=== PATIENT | male | born 1970 | race African-American/Black ===

== ENCOUNTER 2017-01-05 22:09 | Emergency (ER) | payer SELFPAY ==
[~2017-01-05] VITALS: Ht 170.2 cm; Wt 92.5 kg
[2017-01-05 22:33] VITALS: Ht 170.2 cm; Wt 92.5 kg
[2017-01-06] MEDS ORDERED: KETOROLAC 30 MG INJ IM STA (00:36)
--- NOTE | 2017-01-06 00:36 | ERD ---
ER Documentation Chief Complaint Date/Time DATE: 01/06/17 TIME: 00:29 Chief Complaint pt reports sciatic exacerbation HPI Chronic back pain current pain x 1 day , pt reports work injury May 2016. pt reports hitting his head and fracturing his clavicle reports memory loss and he is having a difficult time reporting hx . reports taking IBU and prednsion in he past w/o relife of symptoms . reports a pain manimen MD but has not seen MD. has massage hearpy Friday and Sat symptoms worse today ROS All systems reviewed and are negative except as per history of present illness. Allergies Allergies: Coded Allergies: No Known Allergy (Unverified , 01/05/17) PMhx/Soc Hx Miscellaneous Medical Probl: Yes (sciatic pain) Hx Alcohol Use: No Hx Substance Use: No Hx Tobacco Use: No Smoking Status: Never smoker Physical Exam Vitals Vital Signs Date Time Temp Pulse Resp B/P Pulse Ox O2 Delivery O2 Flow Rate FiO2 01/05/17 22:33 98.2 72 18 117/80 98 Physical Exam Const: Nourished well appearing obvious discomfort no acute distress Head: Atraumatic Eyes: Normal Conjunctiva, PERRLA, EOMI ENT: Neck: Resp: Cardio: Abd: Skin: Back Exam: Skin: No bruising or rash Compartments: Soft Motor: Exam. Patient in wheelchair having difficulty moving Sensation: Intact to light touch throughout Ext: No cyanosis, or edema Neur: Awake and alert Psych: Normal Mood and Affect Results 24 hrs Current Medications Medications (Trade) Dose Ordered Sig/Bisi Route PRN Reason Start Time Stop Time Status Last Admin Dose Admin Ketorolac Tromethamine (Toradol) 30 mg ONCE STAT IM 01/06/17 00:36 01/06/17 00:38 DC 01/06/17 00:48 Diazepam (Valium) 5 mg ONCE ONCE PO 01/06/17 01:00 01/06/17 01:01 DC 01/06/17 00:48 Procedures/MDM PROCEDURE: XR Lumbar Spine. CLINICAL INDICATION: Back pain. TECHNIQUE: AP, lateral and cone-down lateral view of the lumbar spine were obtained. COMPARISON: No prior studies are available for comparison. FINDINGS: There is normal vertebral mineralization and alignment. No fracture or subluxation is seen. The disc spaces are normal in appearance. Posterior facet degenerative changes are likely present at the L4-5 and L5-S1 levels, greater at the L5-S1 level. posterior elements are unremarkable. Small anterior endplate osteophytes at the L4 and L5 levels compatible with mild degenerative changes. The soft tissues appear normal. Left greater than right mild to moderate degenerative changes in the sacroiliac joints. IMPRESSION: 1. No acute fracture. 2. Left greater than right mild to moderate degenerative changes in the sacroiliac joints. Electronically viewed and signed by Physician Marco on 01/06/2017 02:17 This 46-year-old male patient presents to emergency department for evaluation of back pain. Patient reports chronic back pain, states he was in a work- related injury May 2016 hit his head. Patient reports memory loss. Patient reports a fractured collarbone and problems with his cervical spine, thoracic spine, lumbar spine. Patient reports he is currently being treated with ibuprofen, has had a course of steroids, reports getting massage therapy, states he had massage Friday and Friday and now pain is 9/10 on pain scale. Patient reports pain radiating down his left trent. Patient reports he has pain management but does not remember if he is gone. Patient is a poor historian is not eating a consistent medical history. She has not been seen at this hospital in the past. Has no past record to evaluate. Today's emergency room course includes 15 mg of Toradol, 5 mg of Valium, a lumbar x-ray with radiologist interpretation: There is normal vertebral mineralization and alignment. No fracture or subluxation is seen. The disc spaces are normal in appearance. Posterior facet degenerative changes are likely present at the L4- 5 and L5-S1 levels greater at the L5-S1 level. Mild degenerative changes. There is soft tissue appears normal. The left greater than right mild to moderate degenerative changes of the sacroiliac joints. Plan to discharge patient home with Naprosyn 500 mg 1 tab p.o. twice daily 10 days, Valium 5 mg 1 tab p.o. 3 times daily for myopathy. [place] 5/325 count of 7. Patient was told he would not get any further medications from the emergency room that he must follow-up with pain management. Patient is stable with no new complaints during ER course, clinically there is no current evidence to suggest cauda equina syndrome spinal abscess, spinal mass or any other emergent condition appearing to require further evaluation or hospitalization. I feel the patient is stable for discharge at this time. I have discussed results, examination findings, the treatment plan with the patient and family present prior to discharge. Indications for emergent reevaluation, side effects of medication were also discussed. All questions were answered. Patient verbalizes understanding and agrees with plan of care. Departure Diagnosis: Primary Impression: Chronic back pain Back pain location: low back pain Back pain laterality: left Sciatica presence: with sciatica Sciatica laterality: sciatica of left side Qualified Code: M54.42 - Chronic left-sided low back pain with left-sided sciatica Additional Impression: Degenerative disc disease at L5-S1 level Condition: Good Patient Instructions: Back Pain W/ Sciatica Referrals: [facility] Additional Instructions: Thank you for for coming to the [facility] for your care today. Please ask your nurse or provider if you have questions about your care today and do not leave until all your questions have been answered. Please use any medications given as directed and follow-up with your doctor (or the doctor you were referred to) in the next 2-3 days. If you do not have a primary care doctor you may follow up at the [facility] (listed below). You may also use motrin and tylenol as needed for fever and/or pain unless instructed otherwise by your provider or nurse. Indications for more urgent follow-up have been discussed, but you may return to the Emergency Department at ANY time for any worrisome or worsening symptoms. If you have abdominal pain, please know that no test or exam you received is perfect and you should follow up within 8 hours for continued pain. If you had any imaging studies today, such as an X-Ray or CT Scan, these studies will be reviewed later by a radiologist. You will be called if there are important findings that were not identified today, so make sure the contact information you provided at registration is correct. If you received any narcotic pain control medicine today, such as Vicodin, Morphine or Dilaudid, your coordination and judgment may be affected for a number of hours. Please do not drive or operate heavy machinery, and you may want someone to assist you at home. If you were given a prescription for narcotic medication, be aware that it is very addictive- use sparingly and only if necessary. CASSANDRA HOOPER Jan 06, 2017 00:36
[2017-01-06] MEDS ORDERED: DIAZEPAM 5 MG TAB PO ONE (01:00)
--- NOTE | 2017-01-06 02:18 | RADRPT ---
PROCEDURE: XR Lumbar Spine. CLINICAL INDICATION: Back pain. TECHNIQUE: AP, lateral and cone-down lateral view of the lumbar spine were obtained. COMPARISON: No prior studies are available for comparison. FINDINGS: There is normal vertebral mineralization and alignment. No fracture or subluxation is seen. The disc spaces are normal in appearance. Posterior facet degenerative changes are likely present at the L4-5 and L5-S1 levels, greater at the L5-S1 level. posterior elements are unremarkable. Small anterior endplate osteophytes at the L4 and L5 levels compatible with mild degenerative changes. The soft tissues appear normal. Left greater than right mild to moderate degenerative changes in the sacroiliac joints. IMPRESSION: 1. No acute fracture. 2. Left greater than right mild to moderate degenerative changes in the sacroiliac joints. RPTAT: [facility] Physician Marco Date Time Electronically viewed and signed by Physician Marco on 01/06/2017 02:17 RS/
[2017-01-06] MEDS ORDERED: DIAZ-90 PO (02:33)
[2017-01-06] MEDS ORDERED: NAPR-260 PO (02:33)
[2017-01-06] MEDS ORDERED: HYDR-906 PO (02:33)
[2017-01-06 04:37] VITALS: BP 122/87; PULSE 88; RESP 16
== END 2017-01-06 04:17 | disposition home or self-care (01) ==
LOC: FTE 22:09
DX: M54.42 Lumbago with sciatica, left side (principal); M51.37 Other intervertebral disc degeneration, lumbosacral region
CPT/HCPCS: 72100; 96372; 99284; J1885